=== PATIENT | male | born 1980 | race Caucasian/White ===

== ENCOUNTER 2018-12-26 10:01 | Emergency (ER) | payer SELFPAY ==
[~2018-12-26] VITALS: Ht 175.3 cm; Wt 91.0 kg
[2018-12-26 10:05] VITALS: Ht 175.3 cm; Wt 91.0 kg
[2018-12-26] MEDS ORDERED: METHYLPREDNISOLONE 125 MG INJ IV STA (10:44)
[2018-12-26] MEDS ORDERED: ALBUTEROL/IPRATROPIUM (NEB) 3 ML AMP HHN STA (10:44)
[2018-12-26] MEDS ORDERED: ONDANSETRON 4 MG INJ IV STA (10:44)
[2018-12-26] MEDS ORDERED: SOD CHLORIDE 0.9% 500 ML IV STA (10:44)
[2018-12-26] MEDS ORDERED: PRED20TA PO (12:16)
[2018-12-26] MEDS ORDERED: ALBU8.5H8 INH (12:17)
[2018-12-26] MEDS ORDERED: PROM6.2515 PO (12:18)
--- NOTE | 2018-12-26 12:27 | ERD ---
ER Documentation Chief Complaint Chief Complaint generalized weakness with nuasea x 3 days HPI 38-year-old male presents to the emergency department for evaluation of nausea, cough, and weakness x3 days. Denies vomiting or diarrhea, no abdominal pain. Patient also notes lack of appetite with last full meal 2 days [employer]. Has not taken any medication at this time to alleviate his symptoms. Denies fevers, chills. Denies chronic medical conditions. Positive smoker, negative drug or marijuana use. Denies chest pain or SOB. ROS All systems reviewed and are negative except as per history of present illness. Medications Home Meds Active Scripts Promethazine Hcl* (Promethazine Hcl* Syrup) 6.25 Mg/5 Ml Syrup, 6.25 MG PO Q6H PRN for COUGH, #120 ML Prov:LINNEA KEATING PA-C 12/26/18 Albuterol Sulfate* (Proair HFA*) 8.5 Gm Hfa.aer.ad, 2 PUFF INH Q6 for wheezes, #1 INHALER Prov:LINNEA KEATING PA-C 12/26/18 Prednisone* (Prednisone*) 20 Mg Tab, 40 MG PO DAILY for 4 Days, TAB Prov:LINNEA KEATING PA-C 12/26/18 Allergies Allergies: Coded Allergies: Penicillins (Verified Allergy, Unknown, 12/26/18) PMhx/Soc Medical and Surgical Hx: pt denies Medical Hx, pt denies Surgical Hx Hx Alcohol Use: No Hx Substance Use: No Hx Tobacco Use: Yes Smoking Status: Current every day smoker FmHx Family History: No diabetes, No coronary disease, No other Physical Exam Physical Exam Constitutional: Well developed. Well nourished. Patient visibly diaphoretic. Head/Eyes: Atraumatic. Normocephalic. PERRL. EOMI ENT: Moist mucous membranes. Voice normal. Neck: Supple. No lymphadenopathy Cardiovascular: Regular rate and rhythm. No murmurs, rubs, or gallops. Distal pulses intact Respiratory: No respiratory distress. Diffuse expiratory wheezes throughout the lung stewart bilaterally. Patient speaking full sentences. No accessory muscle use. Abdominal: Soft. Non-tender. No guarding, rebound, or rigidity. Non-distended. No right lower quadrant tenderness to palpation, no rebound tenderness, McBurney's point tenderness. Segundo sign. Extremities: No edema, Full ROM. Cap refill less than 2 seconds. Skin: No rashes. Warm. Visibly pale. Neurological: Alert and oriented X 3. Normal speech Psychiatric: Normal mood. Normal affect Results 24 hrs Laboratory Tests Test 12/26/18 10:56 White Blood Count 7.7 10^3/ul Red Blood Count 5.23 10^6/ul Hemoglobin 15.6 g/dl Hematocrit 45.7 % Mean Corpuscular Volume 87.4 fl Mean Corpuscular Hemoglobin 29.8 pg Mean Corpuscular Hemoglobin Concent 34.1 g/dl Red Cell Distribution Width 12.9 % Platelet Count 151 10^3/UL Mean Platelet Volume 9.1 fl Immature Granulocytes % 0.300 % Neutrophils % 81.8 % Lymphocytes % 12.1 % Monocytes % 5.1 % Eosinophils % 0.4 % Basophils % 0.3 % Nucleated Red Blood Cells % 0.0 /100WBC Immature Granulocytes # 0.020 10^3/ul Neutrophils # 6.3 10^3/ul Lymphocytes # 0.9 10^3/ul Monocytes # 0.4 10^3/ul Eosinophils # 0.0 10^3/ul Basophils # 0.0 10^3/ul Nucleated Red Blood Cells # 0.0 10^3/ul Sodium Level 141 mmol/L Potassium Level 4.2 mmol/L Chloride Level 104 mmol/L Carbon Dioxide Level 27 mmol/L Anion Gap 10 Blood Urea Nitrogen 11 mg/dl Creatinine 0.94 mg/dl Est Glomerular Filtrat Rate mL/min > 60 mL/min Glucose Level 129 mg/dl Calcium Level 9.4 mg/dl Lipase 32 U/L Current Medications Medications Dose Sig/Deepak Start Time Status Last (Trade) Ordered Route PRN Stop Time Admin Dose Reason Admin Sodium 500 ml @ Q1H STAT 12/26/18 DC 12/26/18 Chloride 500 mls/hr IV 10:44 10:54 12/26/18 11:43 125 mg ONCE STAT 12/26/18 DC 12/26/18 Methylprednis IV 10:44 10:54 olone Sodium 12/26/18 10:47 Succinate (Solu-Medrol) Albuterol/ 3 ml ONCE STAT 12/26/18 DC 12/26/18 Ipratropium HHN 10:44 11:29 (Duoneb) 6/15/19 10:47 Ondansetron 4 mg ONCE STAT 12/26/18 DC 12/26/18 HCl (Zofran IV 10:44 10:54 Inj) 12/26/18 10:47 Procedures/MDM MDM: This is a 38-year-old male who presents to the ED with multiple nonspecific symptoms. Upon evaluation patient was mildly diaphoretic and audible expiratory wheezes heard on exam throughout all lung stewart. While in ED patient was given fluids, Zofran, Solu-Medrol and breathing treatment. Status post breathing treatment patient visibly improved and sent noted improvement in symptoms. Repeat auscultation revealed improvement in breath sound with mild expiratory wheezes limited to the right upper lobe. Labs and x-ray imaging unremarkable. No evidence of pneumonia, patient afebrile, no white count. Patient symptoms likely due to bronchitis. At this time given improvement in symptoms, stable vital signs, is not hypoxic. Patient is appropriate for outpatient management and discharge at this time. Patient will be discharged home with prescription for prednisone 40 mg x 4 days, albuterol inhaler, promethazine. Counseled regarding ED return precautions patient is to return immediately if symptoms persist or worsen despite treatment. Pt expressed verbal understanding and agreement to treatment plan. All questions addressed and answered. Departure Diagnosis: Primary Impression: Bronchitis Additional Impression: Nausea Condition: Good Patient Instructions: Nausea, Bronchitis With Wheezing (Adult) Referrals: [facility] YOU HAVE RECEIVED A MEDICAL SCREENING EXAM AND THE RESULTS INDICATE THAT YOU DO NOT HAVE A CONDITION THAT REQUIRES URGENT TREATMENT IN THE EMERGENCY DEPARTMENT. FURTHER EVALUATION AND TREATMENT OF YOUR CONDITION CAN WAIT UNTIL YOU ARE SEEN IN YOUR DOCTORS OFFICE WITHIN THE NEXT 1-2 DAYS. IT IS YOUR RESPONSIBILITY TO MAKE AN APPOINTMENT FOR FOLOW-UP CARE. IF YOU HAVE A PRIMARY DOCTOR --you should call your primary doctor and schedule an appointment IF YOU DO NOT HAVE A PRIMARY DOCTOR YOU CAN CALL OUR PHYSICIAN REFERRAL HOTLINE AT IF YOU CAN NOT AFFORD TO SEE A PHYSICIAN YOU CAN CHOSE FROM THE FOLLOWING [facility] [address] [place] [facility] [address] [facility]. [facility] [address] [facility] [address] [facility] [address] [facility] [facility]. [address] LINNEA ROSADO PA-C Dec 26, 2018 12:27
[2018-12-26 12:29] VITALS: BP 106/61; PULSE 75; RESP 18
== END 2018-12-26 12:31 | disposition home or self-care (01) ==
LOC: FTE 10:01
DX: J40 Bronchitis, not specified as acute or chronic (principal); F17.210 Nicotine dependence, cigarettes, uncomplicated; R11.0 Nausea
CPT/HCPCS: 71045; 80048; 83690; 85025; 94664; 96361; 96374; 96375; 99284; J2405; J2930; J7040